=== PATIENT | female | born 2000 | race African-American/Black ===

== ENCOUNTER 2019-05-29 18:13 | Emergency (ER) | payer OTHER ==
--- NOTE | 2019-05-29 20:20 | ED ---
Neurological HPI - HPI Summary HPI Summary: 19 y/o female presented to [facility] after a seizure occurring [employer]. She was at the movies when her ears began to ring and she lost consciousness. She had a seizure that lasted between 30 seconds and 1 minute, and notes that she currently has a headache. She states that she had sinus congestion earlier this week. She notes history of 2 seizures when she was younger, for which she did not take medication, as well as an appendectomy. She consumed alcohol yesterday and denies use of other drugs but smelled of marijuana in the room. - History of Current Complaint Chief Complaint: EDSeizure Stated Complaint: SEIZURE PER PT Time Seen by Provider: 05/29/19 20:12 Hx Obtained From: Patient Onset/Duration: Resolved Timing: Intermittent Episodes Lasting: - 30s-1min Current Severity: Mild Number of Seizures: 1 - with history of 2 others Pain Intensity: 2 Pain Scale Used: 0-10 Numeric Character: Other: - ears ringing Episode Lasting: Seconds/Minutes - 30s-1min Syncope Context: Witnessed, Loss of Consciousness: Yes - Allergy/Home Medications Allergies/Adverse Reactions: Allergies Allergy/AdvReac Type Severity Reaction Status Date / Time No Known Allergies Allergy Verified 05/29/19 18:18 PMH/Surg Hx/FS Hx/Imm Hx Sensory History: Denies: Hx Legally Blind, Hx Deafness Opthamlomology History: Denies: Hx Legally Blind EENT History: Denies: Hx Deafness Infectious Disease History: No Infectious Disease History: Denies: Traveled Outside the [place] in Last 30 Days - Family History Known Family History: Positive: Cardiac Disease - grandfather, Diabetes - grandfather - Social History Alcohol Use: Weekly Alcohol Amount: 2x weekly - drank 05/28/2019 Substance Use Type: Reports: Marijuana Substance Use Comment - Amount & Last Used: 3x4 times weekly - smoked 05/29/2019 Smoking Status (MU): Never Smoked Tobacco Review of Systems Negative: Fever - vitals show temp at 98.3F Neurological: Other - seizure Positive: Headache All Other Systems Reviewed And Are Negative: Yes Physical Exam - Summary Physical Exam Summary: VITAL SIGNS: Reviewed. GENERAL: Patient is a well-developed and nourished female who is lying comfortable in the stretcher. Patient is not in any acute respiratory distress. HEAD AND FACE: No signs of trauma. No ecchymosis, hematomas or skull depressions. No sinus tenderness. EYES: PERRLA, EOMI x 2, No injected conjunctiva, no nystagmus. EARS: Hearing grossly intact. Ear canals and tympanic membranes are within normal limits. MOUTH: Oropharynx within normal limits. NECK: Supple, trachea is midline, no adenopathy, no JVD, no carotid bruit, no c- spine tenderness, neck with full ROM. CHEST: Symmetric, no tenderness at palpation. LUNGS: Clear to auscultation bilaterally. No wheezing or crackles. CVS: Regular rate and rhythm, S1 and S2 present, no murmurs or gallops appreciated. ABDOMEN: Soft, non-tender. No signs of distention. No rebound, no guarding, and no masses palpated. Bowel sounds are normal. EXTREMITIES: FROM in all major joints, no edema, no cyanosis or clubbing. NEURO: Alert and oriented x 3. No acute neurological deficits. Speech is normal and follows commands. SKIN: Dry and warm. Triage Information Reviewed: Yes Vital Signs On Initial Exam: Initial Vitals Temp Pulse Resp BP Pulse Ox 98.3 F 78 18 115/70 99 05/29/19 18:16 05/29/19 18:16 05/29/19 18:16 05/29/19 18:16 05/29/19 18:16 Vital Signs Reviewed: Yes Procedures - Sedation Patient Received Moderate/Deep Sedation with Procedure: No Diagnostics - Vital Signs Vital Signs Temp Pulse Resp BP Pulse Ox 05/29/19 20:02 88 99 05/29/19 20:01 86 109/68 100 05/29/19 18:16 98.3 F 78 18 115/70 99 - Laboratory Result Diagrams: 05/29/19 20:53 05/29/19 20:53 Lab Statement: Any lab studies that have been ordered have been reviewed, and results considered in the medical decision making process. - EKG 2048 Cardiac Rate: NL EKG Rhythm: Sinus Rhythm Summary of EKG Findings: Sinus rhythm at 71bpm. No ST elevation. Normal axis. No STEMI. This EKG was reviewed and interpreted by the ED physician. Course/Dx - Course Assessment/Plan: 19 y/o female presented to [facility] after a seizure occurring [employer]. She was at the movies when her ears began to ring and she lost consciousness. She had a seizure that lasted between 30 seconds and 1 minute, and notes that she currently has a headache. She states that she had sinus congestion earlier this week. She notes history of 2 seizures when she was younger, for which she did not take medication, as well as an appendectomy. She consumed alcohol yesterday and denies use of other drugs but smelled of marijuana in the room. In the ED course the patient was placed in a quality assurance monitor body, IV access was obtained. Blood test w/o a significant abnormality except for presumptive canabinois. I discussed my physical examination findings with Dr. Lanza that he recommends no treatment at this time. He just recommends discharge, follow-up at his office. At this point, I discussed all the findings and test results with the patient. Patient was instructed to return to the emergency room immediately if any of the symptoms return or worsen.Plan of care was discussed with the patient and patient understands and agrees. All questions were answered at patient satisfaction. Patient understands and agrees. Neurological exam before discharge: Patient is alert and oriented x 3. No acute neurological deficits. Patient's vital signs are stable. Patient is to follow up with CPP in the next 2 3 days. They understand and agree. The plan of care was discussed with the patient and patient understands and agrees with the plan of care. All questions were answered at patient satisfaction. There were no further complaints or concerns. - Diagnoses Provider Diagnoses: Seizure Discharge ED - Sign-Out/Discharge Documenting (check all that apply): Patient Departure - Discharge Plan Condition: Stable Disposition: HOME Patient Education Materials: New-Onset Seizure in Adults (ED) Referrals: No Primary Care Phys,NOPCP [Primary Care Provider] - Abel Lanza MD [Medical Doctor] - Additional Instructions: The patient was recommended not to drive, no swimming and follow up with Dr. Lanza. She was also recommended to return to the emergency department if any of the sutures occurs or any other symptom. - Billing Disposition and Condition Condition: STABLE Disposition: Home - Attestation Statements Document Initiated by Scribe: Yes Documenting Scribe: Price Winters Provider For Whom Josee is Documenting (Include Credential): Stephane Carolina MD Scribe Attestation: Price Armas, scribed for Stephane Carolina MD on 05/30/19 at 1341. Scribe Documentation Reviewed: Yes Provider Attestation: The documentation as recorded by the scribe, Price Winters accurately reflects the service I personally performed and the decisions made by me, Stephane Carolina MD Status of Scribe Document: Viewed
[2019-05-29 21:15] LABS: ABS Basophils 0.1 10^3/ul (0-0.2); ABS Lymphocytes 1.4 10^3/ul (1.0-4.8); ABS Monocytes 0.3 10^3/ul (0-0.8); ABS Neutrophils 5.7 10^3/ul (1.5-7.7); Hematocrit 38 % (35-47); Hemoglobin 13.1 g/dL (12.0-16.0); Lymphocyte % 18.7 %; Mean Corpuscular HGB Conc 34 g/dL (31-36); Mean Corpuscular Hemoglobin 30 pg (27-31); Mean Corpuscular Volume 88 fL (80-97); Mean Platelet Volume 9.4 fL (7.4-10.4); Nucleated Red Blood Cells % 0.1; Platelet Count 259 10^3/uL (150-450); Red Blood Count 4.34 10^6 /uL (3.70-4.87); Red Cell Distribution Width 13 % (10-15); White Blood Count 7.5 10^3/uL (3.5-10.8)
[2019-05-29 21:19] LABS: Urine Appearance Cloudy; Urine Bilirubin Negative (Negative); Urine Blood Negative (Negative); Urine Color Yellow; Urine Glucose Negative (Negative); Urine Ketones Trace (Negative); Urine Nitrite Negative (Negative); Urine Protein Negative (Negative); Urine Specific Gravity 1.027 (1.010-1.030); Urine Urobilinogen Negative (Negative)
[2019-05-29 21:24] LABS: Urine Bacteria Absent (Absent); Urine Red Blood Cell Trace(0-2/hpf) (Absent); Urine Squamous Epithelial Cell Present (Absent); Urine White Blood Cell Trace(0-5/hpf) (Absent)
[2019-05-29 21:25] LABS: INR 1.15 (0.82-1.09)
[2019-05-29 21:31] LABS: ALT 11 U/L (7-52); AST 16 U/L (13-39); Albumin/Globulin Ratio 1.5 (1-3); Alkaline Phosphatase 70 U/L (34-104); Anion Gap 6 mmol/L (2-11); BUN/Creatinine Ratio 23.7 (8-20); Blood Urea Nitrogen 18 mg/dL (6-24); CO2 Carbon Dioxide 25 mmol/L (22-32); Calcium 8.9 mg/dL (8.6-10.3); Chloride 106 mmol/L (101-111); EGFR African American 116.2 (>60); EGFR Non-African American 96.1 (>60); Globulin 2.6 g/dL (2-4); Glucose 98 mg/dL (70-100); Magnesium 1.9 mg/dL (1.9-2.7); Potassium 3.8 mmol/L (3.5-5.0); Sodium 137 mmol/L (135-145); Total Protein 6.6 g/dL (6.4-8.9)
[2019-05-29 21:32] LABS: Alcohol < 10 mg/dL (<10)
[2019-05-29 21:35] LABS: Urine Benzodiazepine Screen None Detected (None Detect); Urine Opiates Screen None Detected (None Detect)
[2019-05-29 21:47] LABS: TSH (Thyroid Stimulating Horm) 0.36 mcIU/mL (0.34-5.60)
[2019-05-29 22:35] VITALS: BP 110/54
== END 2019-05-29 22:35 | disposition home or self-care (01) ==
LOC: ED 18:13
DX: R56.9 Unspecified convulsions (principal); R51 Headache
CPT/HCPCS: 36415; 80053; 80307; 80320; 81003; 81015; 83605; 83735; 84443; 85025; 85610; 87086; 93005; 99283; G0480